=== PATIENT | female | born 1985 | race Caucasian/White ===

== ENCOUNTER → 2016-04-07 | Outpatient (CLI) | payer BC ==
[2016-04-07 10:16] LABS: FREE T4 (FREE THYROXINE) 1.32 ng/dL (0.93-1.71)
== END ==
LOC: LAB 09:05
PROVIDERS: ATTEND Obstetrics & Gynecology
DX: E01.0 Iodine-deficiency related diffuse (endemic) goiter (principal)
CPT/HCPCS: 36415; 84439; 84443

== ENCOUNTER → 2016-06-29 | Outpatient (CLI) | payer BC ==
[2016-06-29 14:01] LABS: HEMATOCRIT 44.3 % (37.0-47.0); HEMOGLOBIN 14.8 g/dL (12.0-16.0); MEAN CORPUSCULAR HEMOGLOBIN 30.3 PG (27-31); MEAN CORPUSCULAR HGB CONC 33.4 g/dL (33-37); MEAN CORPUSCULAR VOLUME 90.6 FL (81-99); MEAN PLATELET VOLUME 9.9 FL (7.4-12.2); RED BLOOD COUNT 4.89 10^6/uL (4.20-5.40)
--- NOTE | 2016-06-29 17:07 | DI ---
US SOFT TISSUE HEAD/NECK,06/29/2016 1:57 PM: Clinical History: Thyroid fullness Previous Exam: None at this facility. Findings: Multiple grayscale and color Doppler sonographic images are obtained through the thyroid demonstrate a normal-appearing thyroid lobe with homogeneous echotexture. The thyroid isthmus measured 3 mm. The right thyroid lobe measures 5.0 x 1.6 x 1.6 cm and the left thyroid lobe measures 5.1 x 1.5 x 1.5 cm. There is a very small 2 mm cystic area within the right thyroid lobe. Impression: Normal thyroid ultrasound.
== END ==
LOC: LAB 13:42
PROVIDERS: ATTEND Obstetrics & Gynecology
DX: N92.0 Excessive and frequent menstruation with regular cycle (principal); E04.1 Nontoxic single thyroid nodule
CPT/HCPCS: 36415; 76536; 85027